=== PATIENT | male | born 1950 | race Caucasian/White ===

== ENCOUNTER 2017-07-20 12:52 | Outpatient (CLI) | payer MEDICARE | END 2017-07-20 12:53 | disposition home or self-care (01) | LOC: BICRAD 12:52 | PROVIDERS: ATTEND Urology | DX: C75.1 Malignant neoplasm of pituitary gland (principal) | CPT/HCPCS: 71046 ==

== ENCOUNTER 2017-10-01 13:09 | Outpatient (CLI) | payer MEDICARE ==
[2017-10-01 13:32] VITALS: BMI 31.5
[2017-10-01 14:25] LABS: Mean Corpuscular HGB CONC 35.7 g/dL (32.0-36.0); Mean Corpuscular Hemoglobin 37.8 pg (27.0-31.0); Mean Platelet Volume 5.9 fL (7.4-10.4); Platelet Count 286 thou/uL (130-400); RBC Distribution Width 12.4 % (11.5-14.5); Red Blood Cell (RBC) Count 4.22 mill/uL (4.70-6.10); White Blood Cell (WBC) Count 5.7 thou/uL (4.8-10.8)
[2017-10-01 14:41] LABS: Anion Gap 12 mmol/L (10-20); BUN (Urea Nitrogen) 14 mg/dL (8.4-25.7); Calc. Creatinine Clearance 109 mL/min (70-130); Calcium 9.5 mg/dL (7.8-10.44); Carbon Dioxide 25 mmol/L (23-31); Chloride 107 mmol/L (98-107); Estimated GFR-MDRD 80; Glucose 103 mg/dL (80-115); Potassium 4.2 mmol/L (3.5-5.1); Sodium 140 mmol/L (136-145)
== END 2017-10-01 13:10 | disposition home or self-care (01) ==
LOC: LABBT 13:09
PROVIDERS: ATTEND Neurological Surgery
DX: Z01.818 Encounter for other preprocedural examination (principal); M51.16 Intervertebral disc disorders with radiculopathy, lumbar region
CPT/HCPCS: 80048; 85027

== ENCOUNTER 2017-10-05 08:19 | Day surgery (SDC) | payer MEDICARE ==
--- NOTE | 2017-10-05 00:22 | HP ---
HISTORY OF PRESENT ILLNESS: Mr. Guerrero is a very pleasant 67-year-old man who has been contending w ith a right-sided L2 radiculopathy since last summer. This has been managed well with epidural stero id injections with Dr. Bolanos until recently where his pain is persistent. MRI from [facility] reveals foraminal disk herniation to the right at L2 which fits the symptoms well. He would like to proceed with surgery at this time. PAST MEDICAL HISTORY: Significant for Crohn disease, renal carcinoma, lumbar back pain. CURRENT MEDICATIONS: Azathioprine, Cymbalta, Entocort, Humira. ALLERGIES: No known drug allergies. PHYSICAL EXAMINATION: The patient is alert and oriented x3. Gait is mildly antalgic. Lower extremi ty motor exam reveals normal strength bilaterally in the lower extremities. ASSESSMENT: Lumbar radiculopathy. PLAN: Dr. Dhillon met with the patient, reviewed imaging and advocated for right L2 diskectomy. He ex plained to the patient the risks, benefits, and alternatives of the procedure. The patient expressed understanding and would like to move forward with surgery as discussed. I do believe the patient is mentally competent and capable of making medical decisions for himself and we will move forward with the surgery as planned. This is Ethan Chaudhry PA-C dictating for Dr. Dhillon.
[2017-10-05] MEDS ORDERED: CEFAZOLIN/Water 2 GM/20 ML SYRINGE ONE ×2 (08:55→15:02)
[2017-10-05] MEDS ORDERED: Midazolam HCl 2 mg/2 ml Vial ONE (10:17)
[2017-10-05] MEDS ORDERED: Bupivacaine HCl 0.5%/Epinephrine 1:200,000/PF 30 ml Vial ONE (10:34)
[2017-10-05] MEDS ORDERED: Thrombin 5000 UNITS/5 ML VIAL ONE (10:34)
[2017-10-05] MEDS ORDERED: Metoclopramide HCl 10 MG/2 ML VIAL ONE ×2 (10:38→11:37)
[2017-10-05] MEDS ORDERED: Fentanyl 250 MCG/5 ML VIAL ONE (10:38)
[2017-10-05] MEDS ORDERED: HYDROmorphone 0.5 MG/0.5 ML SYRINGE ONE (11:18)
[2017-10-05] MEDS ORDERED: Ketorolac Tromethamine 30 MG/ML VIAL ONE (11:37)
[2017-10-05] MEDS ORDERED: ePHEDrine/0.9% NaCl/PF SYRINGE 50 mg/10 ml ONE (11:37)
[2017-10-05] MEDS ORDERED: Dexamethasone 20 MG/5 ML VIAL ONE (11:37)
[2017-10-05] MEDS ORDERED: Lidocaine 1% PF 5 ML VIAL ONE (11:37)
[2017-10-05] MEDS ORDERED: Glycopyrrolate 0.2 MG/ML 5 ML SYRINGE ONE (11:37)
[2017-10-05] MEDS ORDERED: PROPOFOL 200 MG/20 ML VIAL ONE (11:37)
--- NOTE | 2017-10-05 12:42 | OP ---
DATE OF PROCEDURE: 10/05/2017 SURGEON: Caden Dhillon M.D. [employer] MEMBER: Ethan Chaudhry PA-C INDICATION: Pain. DIAGNOSIS: Right L2 radiculopathy. PROCEDURES: Right L2 facetectomy, decompression. ANESTHESIA: General. TECHNIQUE: The patient was brought into the operating room and placed under general anesthesia. He was carefully flipped from a supine to prone position on the operating room table. A linear incision was planned over L2. After prepping and draping and after an appropriate operative pause, the incis ion was created. The soft tissues were swept right of midline. A self-retaining retractor was place d in the wound for optimal exposure. High-speed cutting drill bit as well as 2, 3, and 4-mm Kerrison was used to perform facetectomy over the L2 exiting nerve root. The preoperative MRI suggested a fo raminal disk herniation. What I encountered instead was a very large venous varix with a copious tiffanie unt of hemorrhage. This was maintained fairly easily with bipolar cautery. The disk was inspected o ut laterally into the foramen where there was no obvious annular defect or disk material. The exitin g L2 nerve root was identified. It was decompressed after obtaining hemostasis and cauterizing large venous varices. The wound was then irrigated. Hemostasis was maintained throughout. The wound was then closed in anatomic layers and a pressure dressing was applied. There were no known procedural complications.
[2017-10-05] MEDS ORDERED: Tamsulosin HCl 0.4 MG CAP ONE (12:48)
[2017-10-05] MEDS ORDERED: Fentanyl 100 MCG/2 ML VIAL ONE (13:14)
[2017-10-05] MEDS ORDERED: Ondansetron ODT 4 MG TAB ONE (13:37)
== END 2017-10-05 15:45 | disposition home or self-care (01) ==
LOC: SDC 08:19
PROVIDERS: ATTEND Neurological Surgery
PROC: 01NB0ZZ Release Lumbar Nerve, Open Approach (ICD-10-PCS; principal; 2017-10-05)
DX: M54.16 Radiculopathy, lumbar region (principal); K50.90 Crohn's disease, unspecified, without complications; Z79.899 Other long term (current) drug therapy; Z98.890 Other specified postprocedural states
CPT/HCPCS: 76001; J0131; J0670; J1100; J1170; J1885; J2001; J2250; J2704; J2765; J3010; Q0162

== ENCOUNTER 2018-01-04 08:19 | Outpatient (CLI) | payer MEDICARE ==
[2018-01-04] MEDS ORDERED: Iopamidol 370 76% 100 ML VIAL ONE (09:00)
--- NOTE | 2018-01-04 12:03 | CT ---
CT ABDOMEN AND PELVIS WITH AND WITHOUT IV CONTRAST: Date: 01/04/18 HISTORY: 67-year-old male with malignant neoplasm of the right kidney, which was removed 2 days ago. COMPARISON: 01/21/17 from [facility]. FINDINGS: The lung bases are clear. The patient is post cholecystectomy. The liver, spleen, pancreas, and adren al glands appear normal. No free air, free fluid, or lymphadenopathy is seen in the abdomen or pelvis . There are vascular calcifications without evidence of aneurysmal dilatation of the abdominal aorta. There is colonic diverticulosis. There are mild degenerative changes in the spine. No osteolytic or osteoblastic lesions are identified. There is dystrophic calcification and postop change with partial nephrectomy in the inferior pole of the right kidney. No calculi seen in the kidneys, ureters, or the urinary bladder. Postcontrast image s demonstrate no evidence of enhancing mass in either kidney. There is normal contrast enhancement in the ureters and the urinary bladder. A small, fat-containing left inguinal hernia is present. IMPRESSION: 1. Postop changes in the right kidney. No evidence of tumor recurrence or metastatic disease. 2. Colonic diverticulosis. POS: [facility]
== END 2018-01-04 08:20 | disposition home or self-care (01) ==
LOC: SCSCT 08:19
PROVIDERS: ATTEND Urology
DX: C64.1 Malignant neoplasm of right kidney, except renal pelvis (principal); K50.90 Crohn's disease, unspecified, without complications; K57.30 Diverticulosis of large intestine without perforation or abscess without bleeding; Z98.890 Other specified postprocedural states
CPT/HCPCS: 74178

== ENCOUNTER 2018-06-16 08:53 | Outpatient (CLI) | payer MEDICARE ==
--- NOTE | 2018-06-16 11:28 | CT ---
CT ABDOMEN AND PELVIS WITH AND WITHOUT CONTRAST: HISTORY: Microhematuria. COMPARISON: 01/04/2018 TECHNIQUE: Multiple contiguous axial images were obtained in a CT of the abdomen and pelvis with and without IV contrast. Post contrast images were obtained in the nephrographic and excretory phases. Coronal ref ormats were performed. FINDINGS: Calcification and scarring are seen in the posterior hilar lip of the right kidney, which likely repr esents postprocedural/postsurgical change. This is stable compared to the prior examination. No demetria cifications are seen in either kidney. No solid renal mass is seen. Contrast is seen in both renal collecting systems. No filling defects are seen in either ureter or in the urinary bladder. The patient is status post cholecystectomy. There is diffuse fatty infiltration of the liver. The a drenal glands, spleen, and pancreas are unremarkable. Scattered diverticula are seen in the colon. The small bowel is unremarkable. No abdominal or pelvi c lymphadenopathy is seen. Atherosclerotic calcifications are seen in the aorta. Degenerative changes are seen in the spine. The visualized inferior thorax and abdominal wall soft t issues are unremarkable. IMPRESSION: 1. Postsurgical changes of the right kidney without acute urinary collecting system abnormality. 2. Diverticulosis. POS: [facility]
[2018-06-16] MEDS ORDERED: Iopamidol 370 76% 100 ML VIAL ONE (11:34)
== END 2018-06-16 08:54 | disposition home or self-care (01) ==
LOC: CT 08:53
PROVIDERS: ATTEND Urology
DX: C64.9 Malignant neoplasm of unspecified kidney, except renal pelvis (principal); K57.30 Diverticulosis of large intestine without perforation or abscess without bleeding; Z98.890 Other specified postprocedural states
CPT/HCPCS: 74178; 82565

== ENCOUNTER 2025-05-17 10:15 | Outpatient (CLI) | payer OTHER | END 2025-05-17 10:16 | disposition home or self-care (01) | LOC: PET 10:15 | DX: C34.00 Malignant neoplasm of unspecified main bronchus (principal); R91.8 Other nonspecific abnormal finding of lung field | CPT/HCPCS: 78815; A9552 ==